=== PATIENT | male | born 1970 | race Hispanic/Latino ===

== ENCOUNTER 2019-04-17 12:06 | Emergency (ER) | payer SELFPAY ==
[~2019-04-17 12:06] MED LIST: LABETALOL HCL 100 MG/20 ML ONE; PHENYLEPHRINE 0.5% NOSE 15ML NAS ONE
[2019-04-17] MEDS ORDERED: ONDANSETRON 4 MG/2 ML VIAL ONE (12:15)
[2019-04-17] MEDS ORDERED: VITAMIN K (ADULT) 10 MG/ML ONE (12:15)
[2019-04-17] MEDS ORDERED: THIAMINE 200 MG/2 ML INJ ONE (12:15)
[2019-04-17] MEDS ORDERED: NA CHLORIDE 0.9% 1,000 ML ONE (12:15)
[2019-04-17] MEDS ORDERED: NA CHLORIDE 0.9% 1,000 ML with FOLIC ACID 1 MG, THIAMINE HCL 100 MG, MULTIVITAMINS INJ ... IV SCH ×4 (12:30)
--- NOTE | 2019-04-17 12:34 | EKG ---
Test Date: 2019-04-17 Test Time: 12:22:16 Manager [employer]: MEGHANA MEASUREMENT RESULTS: Intervals: Rate: 112 OH: 138 QRSD: 76 QT: 328 QTc: 447 [place]: P: 66 OH: 138 QRS: 93 T: 38 INTERPRETIVE STATEMENTS: Sinus tachycardia Rightward axis Borderline ECG No previous ECG available for comparison Electronically Signed On 04-17-19 12:33:20 CDT by Petey Zamudio
[2019-04-17 12:46] LABS: Absolute Lymphocytes (CBC) 2.1 K/uL (0.7-4.9); Basophils % 0.9 % (0-1.3); Hematocrit 45.4 % (39.6-49.0); Lymphocytes % 23.4 % (15.3-44.8); MPV 9.1 fL (7.6-11.3); Protime INR 0.96; RBC Red Blood Cell Count 4.86 M/uL (4.33-5.43)
--- NOTE | 2019-04-17 12:46 | RAD REPORT ---
EXAM DESCRIPTION: RAD - Chest Single View - 04/17/2019 12:23 pm CLINICAL HISTORY: Cough COMPARISON: None. TECHNIQUE: AP portable chest image was obtained 1220 hours . FINDINGS: Lungs are clear. Heart and vasculature are normal. No measurable pleural effusion and no p neumothorax. No acute bony abnormality seen. No acute aortic findings suspected. IMPRESSION: No acute cardiopulmonary process.
[2019-04-17 13:10] LABS: ALT/SGPT 39 U/L (12-78); AST/SGOT 27 U/L (15-37); Albumin 3.7 g/dL (3.4-5.0); Alkaline Phosphatase 80 U/L (45-117); BUN Blood Urea Nitrogen 15 mg/dL (7-18); Bicarbonate 28 mmol/L (21-32); Bilirubin Direct 0.2 mg/dL (0-0.2); Bilirubin Total 0.6 mg/dL (0.2-1.0); Glucose Level 154 mg/dL (74-106); Magnesium 1.7 mg/dL (1.8-2.4); NT PRO-BNP 47 pg/mL (<125); Potassium 3.8 mmol/L (3.5-5.1); Protein, Total 7.2 g/dL (6.4-8.2); Sodium Level 143 mmol/L (136-145); Troponin (Emerg Dept Use Only) < 0.02 ng/mL (0.0-0.045)
--- NOTE | 2019-04-17 15:08 | ER ---
Nurse's Notes [facility] Name: Jesse White Age: 48 yrs Sex: Male : 1970 Arrival Date: 04/17/2019 Time: 12:07 Bed 2 Private MD: Diagnosis: Epistaxis;Alcohol abuse;Essential (primary) hypertension;Hypomagnesemia Presentation: 04/17 11:57 Acuity: ALEA 2 sv 11:57 Presenting complaint: EMS states: Pt was at work and started having a nosebleed mainly sv to the right nare, reports about a liter of blood loss. EMS reports pt was more alert on scene but just getting lethargic PM HEAD COOK. Pt reports that he was just standing around and felt it coming on and then it just started pouring out. Pt denies sneezing or blowing his nose beforehand and was not climbing anything at work. BP 168/75 HR-130s. Transition of care: patient was not received from another setting of care. Onset of symptoms was April 17, 2019. Risk Assessment: Do you want to hurt yourself or someone else? Patient reports no desire to harm self or others. Initial Sepsis Screen: Does the patient meet any 2 criteria? No. Patient's initial sepsis screen is negative. Does the patient have a suspected source of infection? No. Patient's initial sepsis screen is negative. Care prior to arrival: Medication(s) given: Normal saline infusion, IV initiated. 18 GA, in the left antecubital area. 11:57 Method Of Arrival: EMS: [facility] sv Triage Assessment: 12:00 General: Appears in no apparent distress. uncomfortable, well developed, Behavior is sv cooperative, anxious. Pain: Denies pain. EENT: Nares with bleeding noted bilaterally. Neuro: Level of Consciousness is obeys commands, lethargic, Oriented to person, place, time, situation, Speech is normal. Respiratory: Respiratory effort is even, unlabored, Respiratory pattern is regular, symmetrical. Derm: Skin is pink, warm \\T\\ dry. Historical: - Allergies: 12:35 No Known Allergies; sv - Home Meds: 12:35 None [Active]; sv - PMHx: 12:35 None; sv - PSHx: 12:35 None; sv - Immunization history:: Adult Immunizations up to date. - Social history:: Patient uses alcohol, on a daily basis. "a pack of beer daily." Last drink reported was last night.. - Family history:: not pertinent. - Ebola Screening: : No symptoms or risks identified at this time. Screenin:37 Abuse screen: Denies threats or abuse. Denies injuries from another. Nutritional sv screening: No deficits noted. Tuberculosis screening: No symptoms or risk factors identified. Fall Risk None identified. Assessment: 12:39 Reassessment: Patient appears in no apparent distress at this time. Patient and/or sv family updated on plan of care and expected duration. Pain level reassessed. Patient is alert, oriented x 3, equal unlabored respirations, skin warm/dry/pink. Nasal bleeding has stopped Patient states feeling better. Patient states symptoms have improved. 13:35 Reassessment: Patient appears in no apparent distress at this time. No changes from la1 previously documented assessment. Patient and/or family updated on plan of care and expected duration. Pain level reassessed. Patient is alert, oriented x 3, equal unlabored respirations, skin warm/dry/pink. 14:50 Reassessment: Patient appears in no apparent distress at this time. No changes from la1 previously documented assessment. Patient and/or family updated on plan of care and expected duration. Pain level reassessed. Patient is alert, oriented x 3, equal unlabored respirations, skin warm/dry/pink. 15:27 Reassessment: PT D/C written at same time as mag over one hour, will D/C after la1 completion of ordered meds. 16:41 Reassessment: Patient appears in no apparent distress at this time. No changes from la1 previously documented assessment. Patient and/or family updated on plan of care and expected duration. Pain level reassessed. Patient is alert, oriented x 3, equal unlabored respirations, skin warm/dry/pink. Vital Signs: 12:00 BP 164 / 121; Pulse 119; Resp 20; Temp 97.6; Pulse Ox 98% ; sv 12:06 BP 146 / 112; Pulse 125; Resp 20; Pulse Ox 98% ; sv 12:30 BP 148 / 99; Pulse 88; Resp 15; Pulse Ox 97% on R/A; sv 13:06 BP 135 / 99; Pulse 90; Resp 16; Pulse Ox 96% ; sv 13:35 BP 140 / 100; Pulse 88; Resp 16; Temp 97.1; Pulse Ox 100% on R/A; la1 14:15 BP 145 / 95; Pulse 84; Resp 16; Pulse Ox 94% on R/A; la1 16:41 BP 140 / 90; Pulse 90; Resp 16; Pulse Ox 98% on R/A; la1 ED Course: 11:55 Maintain EMS IV. Dressing intact. Good blood return noted. Site clean \\T\\ dry. Gauge \\T\\ sv site: 18G L AC. 12:07 Patient arrived in ED. leah 12:07 Jorge Boyd MD is Attending Physician. leah 12:08 Jennifer Wolf RN is Primary Nurse. sv 12:08 Assist provider with nosebleed control using rhino rocket placed for extensive packing sv needs, Bleeding from right nares. Set up for procedure. Performed by Jorge Boyd MD Bleeding decreased. Patient tolerated poorly. Neosynephrine sprayed before insertion. 12:10 Initial lab(s) drawn, by ne, sent to lab. sv 12:10 Arm band placed on. sv 12:10 Patient has correct armband on for positive identification. Bed in low position. Call sv light in reach. Side rails up X2. campus monitor on. Pulse ox on. NIBP on. Door closed. Head of bed elevated. 12:12 Triage completed. sv 12:24 EKG done, by chief radiologic technologist. reviewed by Jorge Boyd MD. sm3 12:33 XRAY Chest (1 view) In Process Unspecified. EDMS 12:39 Awaiting lab results. sv 13:30 Report given to Edgar MARIE. sv 14:49 Edgar Garcia RN is Primary Nurse. la1 15:06 Jennifer Gomez MD is Referral Physician. leah 17:03 IV discontinued, intact, bleeding controlled, No redness/swelling at site. Pressure la1 dressing applied. Administered Medications: 12:25 Drug: NS 0.9% 1000 ml Route: IV; Rate: 1 bolus; Site: left antecubital; sv 15:40 Follow up: IV Status: Completed infusion la1 12:26 Drug: Zofran 4 mg Route: IVP; Site: left antecubital; sv 12:39 Follow up: Response: No adverse reaction; Nausea is decreased sv 12:28 Drug: Thiamine 100 mg Route: IV; Rate: bolus; Site: left antecubital; sv 15:40 Follow up: IV Status: Completed infusion la1 12:30 Drug: Trandate 10 mg Route: IVP; Site: left antecubital; sv 12:39 Follow up: Response: No adverse reaction sv 12:31 Drug: Vitamin K1 5 mg Route: Sub-Q; Site: left upper arm; sv 12:39 Follow up: Response: No adverse reaction sv 13:34 Drug: Banana Bag - (NS 0.9% 1000 ml, foLIC Acid 1 mg, Thiamine 100 mg, Multivitamin 1 la1 amp) Route: IV; Rate: 150 ml/hr; Site: left antecubital; 17:03 Follow up: IV Status: Order to discontinue infusion la1 15:10 CANCELLED (Duplicate Order): Trandate 100 mg PO once leah 15:39 Not Given (Other Intervention Used): Trandate 20 mg IVP once; Over 2 minutes la1 15:39 Drug: Magnesium Sulfate 2 grams Route: IVPB; Infused Over: 1 hrs; Site: left la1 antecubital; 17:02 Follow up: IV Status: Completed infusion la1 15:39 Drug: Rocephin 1 grams Route: IV; Rate: per protocol; Site: left antecubital; la1 17:03 Follow up: IV Status: Completed infusion la1 15:39 Drug: Norvasc 10 mg Route: PO; la1 17:03 Follow up: Response: No adverse reaction la1 Outcome: 15:07 Discharge ordered by . leah 17:03 Discharged to home ambulatory. la1 17:03 Condition: stable 17:03 Discharge instructions given to patient, Instructed on discharge instructions, follow up and referral plans. medication usage, Demonstrated understanding of instructions, follow-up care, medications, Prescriptions given X 3. 17:03 Patient left the ED. la1 Signatures: Dispatcher [employer] EDMS Jennifer Wolf RN RN sv Anderson, Corey, MD MD cha Attema, Lee, RN RN la1 Montes, Shakira 3 Corrections: (The following items were deleted from the chart) 12:35 12:10 Acuity: ALEA 2 sv sv 12:39 11:57 Presenting complaint: EMS states: Pt was at work and started having a nosebleed sv mainly to the right nare, reports about a liter of blood loss. Pt reports that he was just standing around and felt it coming on and then it just started pouring out. Pt denies sneezing or blowing his nose beforehand and was not climbing anything at work. sv 12:44 11:57 Presenting complaint: EMS states: Pt was at work and started having a nosebleed sv mainly to the right nare, reports about a liter of blood loss. EMS reports pt was more alert on scene but just getting lethargic PM HEAD COOK. Pt reports that he was just standing around and felt it coming on and then it just started pouring out. Pt denies sneezing or blowing his nose beforehand and was not climbing anything at work. sv
--- NOTE | 2019-04-17 15:09 | EDPHYS ---
Physician Documentation [facility] Name: Jesse White Age: 48 yrs Sex: Male : 1970 Arrival Date: 04/17/2019 Time: 12:07 Bed 2 Private MD: ED Physician Jorge Boyd HPI: 04/17 12:09 This 48 yrs old Male presents to ER via Unassigned with complaints of Nose leah Bleed. 12:09 The patient presents with a nose bleed, that is continuous. Onset: The symptoms/episode leah began/occurred just prior to arrival. Modifying factors: The symptoms are alleviated by nothing. the symptoms are aggravated by nothing. Associated signs and symptoms: Loss of consciousness: the patient experienced no loss of consciousness, Pertinent positives: bleeding, cough, lightheadedness. Severity of symptoms: At their worst the symptoms were moderate in the emergency department the symptoms are unchanged. The patient has experienced similar episodes in the past, a few times. Historical: - Allergies: 12:35 No Known Allergies; sv - Home Meds: 12:35 None [Active]; sv - PMHx: 12:35 None; sv - PSHx: 12:35 None; sv - Immunization history:: Adult Immunizations up to date. - Social history:: Patient uses alcohol, on a daily basis. "a pack of beer daily." Last drink reported was last night.. - Family history:: not pertinent. - Ebola Screening: : No symptoms or risks identified at this time. ROS: 12:09 Constitutional: Negative for fever, chills, and weight loss, Eyes: Negative for injury, leah pain, redness, and discharge, Neck: Negative for injury, pain, and swelling, Respiratory: Negative for shortness of breath, cough, wheezing, and pleuritic chest pain, Abdomen/GI: Negative for abdominal pain, nausea, vomiting, diarrhea, and constipation, Back: Negative for injury and pain, : Negative for injury, bleeding, discharge, and swelling, MS/Extremity: Negative for injury and deformity, Skin: Negative for injury, rash, and discoloration, Neuro: Negative for headache, weakness, numbness, tingling, and seizure. 12:09 ENT: Positive for nose bleed. Exam: 12:09 Constitutional: This is a well developed, well nourished patient who is awake, alert, leah and in no acute distress. Head/Face: Normocephalic, atraumatic. Eyes: Pupils equal round and reactive to light, extra-ocular motions intact. Lids and lashes normal. Conjunctiva and sclera are non-icteric and not injected. Cornea within normal limits. Periorbital areas with no swelling, redness, or edema. Neck: Trachea midline, no thyromegaly or masses palpated, and no cervical lymphadenopathy. Supple, full range of motion without nuchal rigidity, or vertebral point tenderness. No Meningismus. Chest/axilla: Normal chest wall appearance and motion. Nontender with no deformity. No lesions are appreciated. Respiratory: Lungs have equal breath sounds bilaterally, clear to auscultation and percussion. No rales, rhonchi or wheezes noted. No increased work of breathing, no retractions or nasal flaring. Abdomen/GI: Soft, non-tender, with normal bowel sounds. No distension or tympany. No guarding or rebound. No evidence of tenderness throughout. Back: No spinal tenderness. No costovertebral tenderness. Full range of motion. Male : Normal genitalia with no discharge or lesions. Skin: Warm, dry with normal turgor. Normal color with no rashes, no lesions, and no evidence of cellulitis. MS/ Extremity: Pulses equal, no cyanosis. Neurovascular intact. Full, normal range of motion. Neuro: Awake and alert, GCS 15, oriented to person, place, time, and situation. Cranial nerves II-XII grossly intact. Motor strength 5/5 in all extremities. Sensory grossly intact. Cerebellar exam normal. Normal gait. Psych: Awake, alert, with orientation to person, place and time. Behavior, mood, and affect are within normal limits. 12:09 ENT: Nose: bleeding, is seen from the right nare, clotted blood, in right nare. Vital Signs: 12:00 BP 164 / 121; Pulse 119; Resp 20; Temp 97.6; Pulse Ox 98% ; sv 12:06 BP 146 / 112; Pulse 125; Resp 20; Pulse Ox 98% ; sv 12:30 BP 148 / 99; Pulse 88; Resp 15; Pulse Ox 97% on R/A; sv 13:06 BP 135 / 99; Pulse 90; Resp 16; Pulse Ox 96% ; sv 13:35 BP 140 / 100; Pulse 88; Resp 16; Temp 97.1; Pulse Ox 100% on R/A; la1 14:15 BP 145 / 95; Pulse 84; Resp 16; Pulse Ox 94% on R/A; la1 16:41 BP 140 / 90; Pulse 90; Resp 16; Pulse Ox 98% on R/A; la1 MDM: 12:07 Patient medically screened. [facility] [place] 12:11 Data reviewed: vital signs, nurses notes, lab test result(s), EKG, radiologic studies, leah plain films. 04/17 12:09 Order name: Basic Metabolic Panel; Complete Time: 15:01 [facility] [place] 04/17 12:09 Order name: CBC with Diff; Complete Time: 15: [facility] [place] 04/17 12:09 Order name: LFT's; Complete Time: 15: [facility] [place] 04/17 12:09 Order name: Magnesium; Complete Time: 15: [facility] [place] 04/17 12:09 Order name: NT PRO-BNP; Complete Time: 15: [facility] [place] 04/17 12:09 Order name: PT-INR; Complete Time: 15: [facility] [place] 04/17 12:09 Order name: Troponin (emerg Dept Use Only); Complete Time: 15:01 [facility] [place] 04/17 12:09 Order name: XRAY Chest (1 view); Complete Time: 15:01 [facility] [place] 04/17 12:09 Order name: AMMONIA; Complete Time: 15:01 [facility] [place] 04/17 12:09 Order name: EKG; Complete Time: 12:12 [facility] [place] 04/17 12:09 Order name: Cardiac monitoring; Complete Time: 12:32 [facility] [place] 04/17 12:09 Order name: EKG - Nurse/Tech; Complete Time: 12:32 [facility] [place] 04/17 12:09 Order name: IV Saline Lock; Complete Time: 12:32 [facility] [place] 04/17 12:09 Order name: Labs collected and sent; Complete Time: 12:32 [facility] [place] 04/17 12:09 Order name: O2 Per Protocol; Complete Time: 12:32 [facility] [place] 04/17 12:09 Order name: O2 Sat Monitoring; Complete Time: 12:32 [facility] [place] Administered Medications: 12:25 Drug: NS 0.9% 1000 ml Route: IV; Rate: 1 bolus; Site: left antecubital; sv 15:40 Follow up: IV Status: Completed infusion 12:26 Drug: Zofran 4 mg Route: IVP; Site: left antecubital; sv 12:39 Follow up: Response: No adverse reaction; Nausea is decreased sv 12:28 Drug: Thiamine 100 mg Route: IV; Rate: bolus; Site: left antecubital; sv 15:40 Follow up: IV Status: Completed infusion la1 12:30 Drug: Trandate 10 mg Route: IVP; Site: left antecubital; sv 12:39 Follow up: Response: No adverse reaction sv 12:31 Drug: Vitamin K1 5 mg Route: Sub-Q; Site: left upper arm; sv 12:39 Follow up: Response: No adverse reaction sv 13:34 Drug: Banana Bag - (NS 0.9% 1000 ml, foLIC Acid 1 mg, Thiamine 100 mg, Multivitamin 1 la1 amp) Route: IV; Rate: 150 ml/hr; Site: left antecubital; 17:03 Follow up: IV Status: Order to discontinue infusion la1 15:10 CANCELLED (Duplicate Order): Trandate 100 mg PO once leah 15:39 Not Given (Other Intervention Used): Trandate 20 mg IVP once; Over 2 minutes la1 15:39 Drug: Magnesium Sulfate 2 grams Route: IVPB; Infused Over: 1 hrs; Site: left la1 antecubital; 17:02 Follow up: IV Status: Completed infusion la1 15:39 Drug: Rocephin 1 grams Route: IV; Rate: per protocol; Site: left antecubital; la1 17:03 Follow up: IV Status: Completed infusion la1 15:39 Drug: Norvasc 10 mg Route: PO; la1 17:03 Follow up: Response: No adverse reaction la1 Disposition: 04/17/19 15:07 Discharged to Home. Impression: Epistaxis, Alcohol abuse, Essential (primary) hypertension, Hypomagnesemia. - Condition is Stable. - Discharge Instructions: Alcohol Use Disorder, Nosebleed, Adult, Hypertension, Hypomagnesemia, Hypertension, [id number], Alcohol Abuse and Nutrition, How to Take Your Blood Pressure, [id number], Nosebleed, [id number], Managing Your Hypertension. - Prescriptions for Bactrim DS 800- 160 mg Oral Tablet - take 1 tablet by ORAL route every 12 hours for 7 days; 14 tablet. Norvasc 5 mg Oral Tablet - take 1 tablet by ORAL route once daily; 20 tablet. Pepcid 20 mg Oral Tablet - take 1 tablet by ORAL route every 12 hours for 10 days; 20 tablet. - Medication Reconciliation Form, Thank You Letter, Antibiotic Education, Prescription Opioid Use, Work release form form. - Follow up: Private Physician; When: 2 - 3 days; Reason: Recheck today's complaints, Continuance of care, Re-evaluation by your physician. Follow up: Jennifer Gomez MD; When: 2 - 3 days; Reason: Recheck today's complaints, Continuance of care, Re-evaluation by your physician. - Problem is new. - Symptoms have improved. Signatures: Dispatcher [employer] EDJennifer Vidal RN Jorge Tavares MD MD cha Attema, Lee, RN RN la1 Corrections: (The following items were deleted from the chart) 15:10 15:06 Trandate 100 mg PO once ordered. [facility] 15:10 15:07 04/17/2019 15:07 Discharged to Home. Impression: Epistaxis; Alcohol abuse; leah Essential (primary) hypertension. Condition is Stable. Forms are Medication Reconciliation Form, Thank You Letter, Antibiotic Education, Prescription Opioid Use. Follow up: Private Physician; When: 2 - 3 days; Reason: Recheck today's complaints, Continuance of care, Re-evaluation by your physician. Follow up: Jennifer Gomez; When: 2 - 3 days; Reason: Recheck today's complaints, Continuance of care, Re-evaluation by your physician. Problem is new. Symptoms have improved. [facility] [place] 17:03 15:10 04/17/2019 15:07 Discharged to Home. Impression: Epistaxis; Alcohol abuse; la1 Essential (primary) hypertension; Hypomagnesemia. Condition is Stable. Discharge Instructions: Alcohol Use Disorder, Nosebleed, Adult, Hypertension, Hypertension, [id number], Alcohol Abuse and Nutrition, How to Take Your Blood Pressure, [id number], Nosebleed, [id number], Managing Your Hypertension. Prescriptions for Bactrim DS 800-160 mg Oral Tablet - take 1 tablet by ORAL route every 12 hours for 7 days; 14 tablet, Norvasc 5 mg Oral Tablet - take 1 tablet by ORAL route once daily; 20 tablet, Pepcid 20 mg Oral Tablet - take 1 tablet by ORAL route every 12 hours for 10 days; 20 tablet. and Forms are Medication Reconciliation Form, Thank You Letter, Antibiotic Education, Prescription Opioid Use. Follow up: Private Physician; When: 2 - 3 days; Reason: Recheck today's complaints, Continuance of care, Re-evaluation by your physician. Follow up: Jennifer Gomez; When: 2 - 3 days; Reason: Recheck today's complaints, Continuance of care, Re-evaluation by your physician. Problem is new. Symptoms have improved. leah
[2019-04-17] MEDS ORDERED: AMLODIPINE 5 MG TAB ONE (15:28)
[2019-04-17] MEDS ORDERED: CEFTRIAXONE/SWI 1gm 1 GM/10 ML SYR ONE (15:28)
[2019-04-17] MEDS ORDERED: Magnesium Sulfate 2gm IVPB 2 G/50 ML BAG IV ONE (15:29)
[2019-04-17 17:24] VITALS: TEMP 97.1
[2019-04-17 17:27] VITALS: BP 140/90; O2SAT 98
== END 2019-04-17 17:03 | disposition home or self-care (01) ==
LOC: ER 12:06
DX: R04.0 Epistaxis (principal); F10.10 Alcohol abuse, uncomplicated; I10 Essential (primary) hypertension; E83.42 Hypomagnesemia
CPT/HCPCS: 30901; 36415; 71045; 80048; 80076; 82140; 83735; 83880; 84484; 85025; 85610; 93005; 96365; 96366; 96367; 96368; 96372; 96375; 99285; J0696; J2405; J3411; J3430; J3475; J7030

== ENCOUNTER 2022-11-24 21:47 | Emergency (ER) | payer OTHER, SELFPAY ==
--- OUTSIDE RECORDS SUMMARY | 2022-11-24 21:50 | XMS REPORT | Continuity of Care Document ---
:1970 Author Organization [facility] t Address [address] [facility] [address] [place] [address] Care Team Providers Name Role Phone Unavailable Unavailable Unavailable Problems This patient has no known problems. Allergies, Adverse Reactions, Alerts This patient has no known allergies or adverse reactions. Medications This patient has no known medications. Procedures This patient has no known procedures. Encounters Start End Encounter Admission Attending Care Care Encounter Source Date/Time Date/Time Type Type Clinicians Facility Department ID 2022-11-11 2022-11-11 Outpatient [facility] [id number] 11:16:20 11:16:20 [id number] [address] [place] Results Test Description Test Time Test Comments Results Result Comments Source TESTOSTERONE 2022-11-13 02:55:40 Test Item Value Reference Range Interpretation Comme nts TESTOSTERONE (test code = 2830) 360 NG/DL 300-890 VITAMIN D, 25 [id number] 02:26:26 Test Item Value Reference Range Interpretation Comments VITAMIN D, 25 12 NG/ML SEE BELOW L EFFECTIVE 07/24/2022, [place] (test code PLEASE NOTE NE W METHODOLOGY = 4958) IS ELECTROCH EMILUMINESCENCE BINDING ASSAY. NOTE: 25-HYDROXYVITAM IN D ASSAY INCLUDES 25-HYD ROXYVITAMIN D2 AND D3. INTERPRETIVE RANGES PED IATRIC (<17 YEARS) . . . . . . . . . . . NG/ML 20-100ADU LT: INSUFFICIENT . . . . . . . . . . . . . . NG/ML <20 SUBOP TIMAL . . . . . . . . . . . . . . . NG/ML 20-29 OPTIMAL . . . . . . . . . . . . . . . . . NG/ML 30-100 TSH, THIRD [id number] 02:18:46 Test Item Value Reference Range Interpretation Comments TSH, THIRD GENERATION (test code 0.903 UIU/ML 0.400-4.100 = 2821) PSA, [id number] 02:18:46 Test Item Value Reference Range Interpretation Comments PSA, TOTAL 0.96 NG/ML See_Comment NOTE: Methodol ogy is Miguel (test code = [employer] Electroch emiluminescence 2606) Immunoassay tra ceable to WHO reference stand madison 96/760. [Automated mess age] The system which generated this result transmitted ref erence range: <=4.00. The ref erence range was not used to int erpret this result as marisol l/abnormal. LIPID [id number] 01:43:47 Test Item Value Reference Range Interpretation Comments CHOLESTEROL (test 177 MG/DL <200 code = 2210) TRIGLYCERIDES (test 75 MG/DL <150 code = 2232) HDL CHOLESTEROL (test 74 MG/DL >39 code = 2220) CALC LDL CHOL (test 87 MG/DL <100 NOTE: C ALCULATED LDL code = 2237) IS BASED ON EBONY-VEGA METHOD WHICHINCLUDES ADJUSTABLE TRIGLYCERIDE:VL DL CHOLESTEROL RAT IO.THIS FACTOR VARIES B Y MEASURED TRIGLY CERIDE AND NON-HDLCHOL ESTEROL CONCENTRATIONS WITH INCREASED CALCU LATED LDL SEENIN HIGH ER TRIGLYCERIDE OR LOWER NON-HDL SPECIME NS. FOR MOREINFORMATION , SEE CLIENT ANNOUNCE MENT AT [email or web address] LDL/HDL 1.18 RATIO <3.55 [facility] has important (test code = 2238) pathology staff changes effecti ve 09/13/2022. New pathology staff will provide uninter rupted, excellent patie nt care and clinical consultation. S ee URL: [email or web address]. UNLES S OTHERWISE INDIC ATED, ALL TESTING PER FORMED AT CLINICAL [facility] [place], [place] [place] [address] GILDA MACKEY DIRECTOR: Deysi AGUILAR CHARLES NUMBER [id number] CAP ACCREDITATION N O. [id number] COMPREHENSIVE METABOLIC [id number] 01:43:47 Test Item Value Reference Range Interpretation Comments GLUCOSE (test code = 102 MG/DL 70-99 H 2216) BUN (test code = 14 MG/DL 6-20 2207) CREATININE (test 0.91 MG/DL 0.80-1.40 code = 2213) eGFR (2020 CKD-EPI) 100 >60 (test code = 01473) ML/MIN/1.73 CALC BUN/CREAT (test 15 RATIO 6-28 code = 223) SODIUM (test code = 142 MEQ/L 327-799 3469) POTASSIUM (test code 4.7 MEQ/L 3.5-5.4 = 2227) CHLORIDE (test code 106 MEQ/L 95-107 = 2214) CARBON DIOXIDE (test 23 MEQ/L 19-31 code = 2205) CALCIUM (test code = 10.0 MG/DL 8.5-10.5 2208) PROTEIN, TOTAL (test 6.9 G/DL 6.1-8.3 code = 2228) ALBUMIN (test code = 4.3 G/DL 3.5-5.2 2200) CALC GLOBULIN (test 2.6 G/DL 1.9-3.7 code = 2239) CALC A/G RATIO (test 1.7 RATIO 1.0-2.6 code = 2233) BILIRUBIN, TOTAL 0.4 MG/DL See_Comment [Automated message] (test code = 2206) The syste m which generated this result transmit silvestre reference range : <=1.2. The refe rence range was not u sed to interpret th is result as normal/abnormal . ALKALINE PHOSPHATASE 101 U/L 40-121 (test code = 2203) AST (test code = 29 U/L 9-50 2217) ALT (test code = 36 U/L 5-50 2218) HEMOGLOBIN [id number] 04:16:38 Test Item Value Reference Range Interpretation Comments HEMOGLOBIN A1c (test 6.1 % 4.2-5.6 H AMERIC AN DIABETES code = 06151) ASSOCIATION IDELINES FOR HGB A1C: PREDIABETES/INC REASED RISK . . . . . . . 5.7 -6.4% DIAGNOSIS OF DI ABETES . . . . . . . . . >=6 .5% WITH CONFIRMATION OR APPROPRIATE SYMPTOMS NOTE: ASSAY MAY BE AFFECTED BY HEMOGLOBINOPATH IES (SICKLE CELL ANEMIA, S- C DISEASE, OTHERS) OR ADALGISA FICIALLY LOWERED BY DECR EASED RED CELL SURVIVAL ( HEMOLYTIC ANEMIAS, BLOOD LOSS, ETC.). CONSIDER ALTERN ATE TESTING OR LABORATORY C ONSULTATION. CBC W/AUTO DIFF WITH [id number] 03:42:14 Test Item Value Reference Range Interpretation Comments WBC (test code = 6.1 K/UL 3.5-11.0 1001) RBC (test code = 5.00 M/UL 4.50-6.10 1002) HEMOGLOBIN (test code 16.4 G/DL 13.5-17.0 = 1003) HEMATOCRIT (test code 45.5 % 40.0-51.0 = 1004) MCV (test code = 91.0 fL 80.0-99.0 1005) MCH (test code = 32.8 PG 25.0-33.0 1006) MCHC (test code = 36.0 G/DL 31.0-36.0 1007) RDW (test code = 12.2 % 11.5-15.0 1038) NEUTROPHILS (test 63.6 % code = 1008) LYMPHOCYTES (test 24.2 % code = 1010) MONOCYTES (test code 8.8 % = 1011) EOSINOPHILS (test 2.3 % code = 1012) BASOPHILS (test code 0.8 % = 1013) IMMATURE GRANULOCYTES 0.3 % (test code = 1036) NUCLEATED RBCS (test 0.0 /100 WBC'S See_Comment [Aut omated code = 1065) message] The sy stem which generated this result transmitted reference range : 0.0. The refere nce range was not u sed to interpret th is result as normal/abnormal . PLATELET COUNT (test 242 K/UL 130-400 code = 1015) ABSOLUTE NEUTROPHILS 3.88 K/UL 1.50-7.50 (test code = 1066) ABSOLUTE LYMPHOCYTES 1.48 K/UL 1.00-4.00 (test code = 1067) ABSOLUTE MONOCYTES 0.54 K/UL 0.20-1.00 (test code = 1068) ABSOLUTE EOSINOPHILS 0.14 K/UL 0.00-0.50 (test code = 1040) ABSOLUTE BASOPHILS 0.05 K/UL 0.00-0.20 (test code = 1069) ABS IMMATURE 0.02 K/UL 0.00-0.10 GRANULOCYTES (test code = 1020) ABS NUCLEATED RBCS 0.00 K/UL 0.00-0.11 (test code = 98059)
--- NOTE | 2022-11-24 22:30 | RAD REPORT ---
EXAM DESCRIPTION: RAD - Chest Single View - 11/24/2022 10:22 pm CLINICAL HISTORY: PALPITATIONS Chest pain. COMPARISON: Chest Single View dated 04/17/2019 FINDINGS: Portable technique limits examination quality. The lungs are grossly clear. The heart is normal in size. No displaced fractures. IMPRESSION: No acute intrathoracic process suspected.
[2022-11-24 22:41] LABS: Absolute Lymphocytes (CBC) 1.9 K/uL (0.7-4.9); Hematocrit 43.4 % (39.6-49.0); MCV 93.9 fL (80-100); MPV 8.5 fL (7.6-11.3); RBC Red Blood Cell Count 4.63 M/uL (4.33-5.43)
[2022-11-24 22:53] LABS: Albumin 3.6 g/dL (3.4-5.0); Bilirubin Direct 0.1 mg/dL (0-0.2); Bilirubin Indirect, Calculated 0.3 (0.2-0.8); Bilirubin Total 0.4 mg/dL (0.2-1.0); Potassium 3.2 mEq/L (3.5-5.1); Protein, Total 7.2 g/dL (6.4-8.2); Troponin High Sensitivity 8.5 pg/mL (<58.9)
[2022-11-24] MEDS ORDERED: POTASSIUM CL SA 10 MEQ TAB PO ONE (23:10)
--- NOTE | 2022-11-25 00:59 | ER ---
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 Patient stated the chest pain started while eating. Coronavirus screen: Vaccine status: Patient reports being unvaccinated. Client denies travel out of the [place] in the last 14 days. Client presents with at least one sign or symptom that may indicate coronavirus-19. Ebola Screen: Patient negative for fever greater than or equal to 101.5 degrees Fahrenheit, and additional compatible Ebola Virus Disease symptoms. Initial Sepsis Screen: Does the patient meet any 2 criteria? No. Patient's initial sepsis screen is negative. Does the patient have a suspected source of infection? No. Patient's initial sepsis screen is negative. Risk Assessment: Do you want to hurt yourself or someone else? Patient reports no desire to harm self or others. 22:09 Method Of Arrival: Wheelchair pf1 22:09 Acuity: ALEA 2 pf1 22:30 Onset of symptoms was November 24, 2022. kd3 Triage Assessment: 22:30 General: Appears uncomfortable, Behavior is calm, cooperative. Respiratory: Reports kd3 shortness of breath at rest Onset: The symptoms/episode began/occurred gradually, the patient has mild shortness of breath. Historical: - Allergies: 22:13 No Known Allergies; pf1 - Home Meds: 22:13 losartan oral [Active]; Metformin Oral [Active]; pf1 - PMHx: 22:13 Hypertensive disorder; prediabetic; pf1 - Immunization history:: Adult Immunizations up to date, Client reports having NOT received the Covid vaccine. Last tetanus immunization: < 10 years ago Flu vaccine is not up to date. - Social history:: Smoking status: Patient denies any tobacco usage or history of. Patient uses alcohol, on a daily basis. Patient/guardian denies using street drugs. Screenin:29 [facility] ED Fall Risk Assessment (Adult) History of falling in the last 3 months, kd3 including since admission No falls in past 3 months (0 pts) Confusion or Disorientation No (0 pts) Intoxicated or Sedated No (0 pts) Impaired Gait No (0 pts) Mobility Assist Device Used No (0 pt) Altered Elimination No (0 pt) Score/Fall Risk Level 0 - 2 = Low Risk Maintained a safe environment. Abuse screen: Denies threats or abuse. Denies injuries from another. Nutritional screening: No deficits noted. Tuberculosis screening: No symptoms or risk factors identified. Assessment: 22:29 Pain: Complains of pain in chest. Cardiovascular: Rhythm is regular. Respiratory: kd3 Airway is patent Trachea midline Respiratory effort is even, unlabored, Breath sounds are clear bilaterally. Vital Signs: 22:09 BP 143 / 84; Pulse 96; Resp 20; Temp 98.3; Pulse Ox 94% on R/A; Weight 113.4 kg; Height pf1 5 ft. 7 in. ; Pain 8/10; 22:28 BP 130 / 87; Pulse 99; Resp 18; Pulse Ox 94% on R/A; kd3 23:06 BP 139 / 91; Pulse 102; Resp 15; Pulse Ox 95% on R/A; kd3 11/25 00:17 BP 155 / 99; Pulse 104; Resp 19; Pulse Ox 93% on R/A; kd3 01:05 BP 141 / 69; Pulse 82; Resp 19; Pulse Ox 99% on R/A; kd3 11/24 22:09 Body Mass Index 39.16 (113.40 kg, 170.18 cm) pf1 11/24 22:09 Pain Scale: Adult pf1 ED Course: 11/24 21:48 Patient arrived in ED. jj6 21:50 Sue Moeller FNP-C is PHCP. kb 21:50 Taco Martinez MD is Attending Physician. kb 22:01 Aparna Wiggins RN is Primary Nurse. kd3 22:10 Inserted saline lock: 20 gauge in right antecubital area, using aseptic technique. kd3 Blood collected. 22:13 Triage completed. pf1 22:24 XRAY Chest (1 view) In Process Unspecified. EDMS 22:29 No provider procedures requiring assistance completed. kd3 22:29 Patient has correct armband on for positive identification. Placed in gown. Bed in low kd3 position. 22:30 Arm band placed on right wrist. EKG completed in triage. Results shown to MD. kd3 11/25 01:04 IV discontinued, intact, bleeding controlled, No redness/swelling at site. Pressure kd3 dressing applied. Administered Medications: 11/24 23:05 Drug: Potassium Chloride PO 20 mEq Route: PO; kd3 11/25 01:04 Follow up: Response: No adverse reaction kd3 Medication: 11/24 22:29 VIS not applicable for this client. kd3 Outcome: 11/25 00:59 Discharge ordered by MD. cedillo 01:03 Discharged to home ambulatory. kd3 01:03 Condition: stable 01:03 Discharge instructions given to patient, family, Instructed on discharge instructions, follow up and referral plans. Demonstrated understanding of instructions, follow-up care. 01:06 Patient left the ED. kd3 Signatures: Dispatcher [employer] EDMS Sue Moeller, FIELD SERVICE POULTRY TECHNICIAN-C FIELD SERVICE POULTRY TECHNICIAN-Ckb Isabelle De La Vega jj6 Aparna Wiggins RN RN kd3 Danni flores RN RN pf1
--- NOTE | 2022-11-25 00:59 | EDPHYS ---
Physician Documentation [facility] Name: Jesse White Age: 52 yrs Sex: Male : 1970 Arrival Date: 11/24/2022 Time: 21:47 Bed 8 Private MD: ED Physician Taco Martinez HPI: 11/24 22:04 This 52 yrs old Male presents to ER via Unassigned with complaints of kb Shortness Of Breath, Chest Pain. 22:04 The patient has shortness of breath while walking out of a restaurant . Onset: The kb symptoms/episode began/occurred 20 minute(s) ago. Duration: The symptoms are continuous. The patient's shortness of breath is aggravated by nothing, is alleviated by nothing. Associated signs and symptoms: Pertinent positives: palpitations, Pertinent negatives: chest pain, non-productive cough. Severity of symptoms: At their worst the symptoms were mild moderate in the emergency department the symptoms are unchanged. The patient has not experienced similar symptoms in the past. The patient has not recently seen a physician. 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 States he has been under more stress than normal. Denies chest pain. . Historical: - Allergies: 22:13 No Known Allergies; pf1 - Home Meds: 22:13 losartan oral [Active]; Metformin Oral [Active]; pf1 - PMHx: 22:13 Hypertensive disorder; prediabetic; pf1 - Immunization history:: Adult Immunizations up to date, Client reports having NOT received the Covid vaccine. Last tetanus immunization: < 10 years ago Flu vaccine is not up to date. - Social history:: Smoking status: Patient denies any tobacco usage or history of. Patient uses alcohol, on a daily basis. Patient/guardian denies using street drugs. ROS: 22:03 Constitutional: Negative for fever, chills, and weight loss. kb 22:03 Cardiovascular: Positive for palpitations, Negative for chest pain. 22:03 Respiratory: Positive for shortness of breath. 22:03 All other systems are negative. Exam: 22:03 Constitutional: This is a well developed, well nourished patient who is awake, alert, kb and in no acute distress. Head/Face: Normocephalic, atraumatic. ENT: Moist Mucous membranes Cardiovascular: Regular rate and rhythm with a normal S1 and S2. No gallops, murmurs, or rubs. No pulse deficits. Respiratory: Respirations even and unlabored. No increased work of breathing. Talking in full sentences Abdomen/GI: Soft, non-tender. No distention Skin: Warm, dry with normal turgor. Normal color. MS/ Extremity: Pulses equal, no cyanosis. Neurovascular intact. Full, normal range of motion. Neuro: Awake and alert, GCS 15, oriented to person, place, time, and situation. Moves all extremities. Normal gait. 22:03 Constitutional: The patient appears tearful Vital Signs: 22:09 BP 143 / 84; Pulse 96; Resp 20; Temp 98.3; Pulse Ox 94% on R/A; Weight 113.4 kg; Height pf1 5 ft. 7 in. ; Pain 8/10; 22:28 BP 130 / 87; Pulse 99; Resp 18; Pulse Ox 94% on R/A; kd3 23:06 BP 139 / 91; Pulse 102; Resp 15; Pulse Ox 95% on R/A; kd3 11/25 00:17 BP 155 / 99; Pulse 104; Resp 19; Pulse Ox 93% on R/A; kd3 01:05 BP 141 / 69; Pulse 82; Resp 19; Pulse Ox 99% on R/A; kd3 11/24 22:09 Body Mass Index 39.16 (113.40 kg, 170.18 cm) pf1 11/24 22:09 Pain Scale: Adult pf1 MDM: 11/24 21:53 Patient medically screened. kb 22:03 Data reviewed: vital signs, nurses notes. kb 22:05 Differential diagnosis: Anxiety Reaction pulmonary edema, Pulmonary Embolism abnormal kb EKG, [place]. Historians other than the Patient: Spouse/Significant Other: . 11/25 00:58 Counseling: I had a detailed discussion with the patient and/or guardian regarding: the kb historical points, exam findings, and any diagnostic results supporting the discharge/admit diagnosis, lab results, radiology results, the need for outpatient follow up, a family practitioner, to return to the emergency department if symptoms worsen or persist or if there are any questions or concerns that arise at home. 11/24 21:57 Order name: Basic Metabolic Panel; Complete Time: 22:54 kb 11/24 21:57 Order name: CBC with Diff; Complete Time: 22:46 kb 11/24 21:57 Order name: D-Dimer; Complete Time: 23:22 kb 11/24 21:57 Order name: LFT's; Complete Time: 22:54 kb 11/24 21:57 Order name: Magnesium; Complete Time: 22:54 kb 11/24 21:57 Order name: NT PRO-BNP; Complete Time: 22:54 kb 11/24 21:57 Order name: Troponin HS; Complete Time: 22:54 kb 11/24 23:56 Order name: Troponin High Sensitivity; Complete Time: 00:58 kb 11/24 21:57 Order name: XRAY Chest (1 view); Complete Time: 22:46 kb 11/24 21:57 Order name: EKG; Complete Time: 21:58 kb 11/24 21:57 Order name: Cardiac monitoring; Complete Time: 22:10 kb 11/24 21:57 Order name: EKG - Nurse/Tech; Complete Time: 22:10 kb 11/24 21:57 Order name: IV Saline Lock; Complete Time: 22:10 kb 11/24 21:57 Order name: Labs collected and sent; Complete Time: 22:10 kb 11/24 21:57 Order name: O2 Per Protocol; Complete Time: 22:10 kb 11/24 21:57 Order name: O2 Sat Monitoring; Complete Time: 22:10 kb Administered Medications: 11/24 23:05 Drug: Potassium Chloride PO 20 mEq Route: PO; kd3 11/25 01:04 Follow up: Response: No adverse reaction kd3 Disposition: 02:06 Co-signature as Attending Physician, Taco Martinez MD I reviewed the patient's care rn provided by the Advanced Practice Provider and agree with the diagnosis and treatment plan. Disposition Summary: 11/25/22 00:59 Discharge Ordered Location: Home kb Condition: Stable kb Diagnosis - Dyspnea kb Followup: kb - With: Emergency Department - When: As needed - Reason: Worsening of condition Followup: kb - With: Private Physician - When: 2 - 3 days - Reason: Recheck today's complaints, Continuance of care, Re-evaluation by your physician Discharge Instructions: - Discharge Summary Sheet kb - Shortness of Breath, Adult, [id number] kb - Panic Attack, [id number] kb Forms: - Medication Reconciliation Form kb - Thank You Letter kb - Antibiotic Education kb - Prescription Opioid Use kb Signatures: Dispatcher [employer] Sue Wan, STEEL FABRICATOR-C STEEL FABRICATOR-Taco Ramos MD MD rn Aparna Wiggins RN RN kd3 Danni flores RN RN pf1
[2022-11-25 01:29] VITALS: TEMP 98.3
[2022-11-25 01:35] VITALS: BP 141/69; O2SAT 99
--- NOTE | 2022-11-26 14:46 | EKG ---
Test Date: 2022-11-24 Test Time: 22:01:04 Creative Writing Professor: MARLYS MEASUREMENT RESULTS: Intervals: Rate: 93 AR: 138 QRSD: 98 QT: 378 QTc: 469 [place]: P: 56 AR: 138 QRS: 30 T: 22 INTERPRETIVE STATEMENTS: Sinus rhythm with premature atrial complexes Otherwise normal ECG Compared to ECG 04/17/2019 12:22:16 Atrial premature complex(es) now present Sinus tachycardia no longer present Right-axis deviation no longer present Electronically Signed On 11-26-22 14:43:45 CDT by Taj Rodriguez
== END 2022-11-25 01:06 | disposition home or self-care (01) ==
LOC: ER 21:47
DX: R06.00 Dyspnea, unspecified (principal); I10 Essential (primary) hypertension; R73.03 Prediabetes
CPT/HCPCS: 36415; 71045; 80048; 80076; 83735; 83880; 84484; 85025; 85379; 93005; 99284